=== PATIENT | male | born 1980 | race Caucasian/White ===

== ENCOUNTER 2017-02-23 11:12 | Emergency (ER) | payer MEDICAID ==
[2017-02-23] MEDS ORDERED: Ibuprofen TAB* 400 MG PO ONE (12:49)
--- NOTE | 2017-02-23 12:49 | UC ---
Skin Complaint HPI - HPI Summary HPI Summary: complaint of insect bite on his left arm this morning squeezed bite area and some pus came out of it painful and feels hot red area is increasing today hasn't taken anything for pain - History of Current Complaint Chief Complaint: UCSkin Time Seen by Provider: 02/23/17 12:39 Stated Complaint: BUG BITE Hx Obtained From: Patient - Allergy/Home Medications Allergies/Adverse Reactions: Allergies Allergy/AdvReac Type Severity Reaction Status Date / Time No Known Allergies Allergy Verified 02/23/17 11:15 Review of Systems Constitutional: Negative Skin: Rash Eyes: Negative ENT: Negative Respiratory: Negative Cardiovascular: Negative Gastrointestinal: Negative Genitourinary: Negative Motor: Negative Neurovascular: Negative Musculoskeletal: Negative Neurological: Negative Psychological: Negative All Other Systems Reviewed And Are Negative: Yes PMH/Surg Hx/FS Hx/Imm Hx Previously Healthy: Yes - Surgical History Surgical History: Yes Surgery Procedure, Year, and Place: eye - Family History Known Family History: Negative: Cardiac Disease, Hypertension, Diabetes - Social History Occupation: Employed Full-time Lives: With Family Alcohol Use: Weekly Substance Use Type: Marijuana Smoking Status (MU): Former Smoker Physical Exam Triage Information Reviewed: Yes Appearance: No Pain Distress, Well-Nourished Vital Signs: Initial Vital Signs Temp 97 F 02/23/17 11:16 Pulse 66 02/23/17 11:16 Resp 15 02/23/17 11:16 BP 120/89 02/23/17 11:16 Pulse Ox 100 02/23/17 11:16 Vital Signs Reviewed: Yes Eyes: Positive: Conjunctiva Clear ENT: Positive: Pharynx normal, TMs normal Neck: Positive: No Lymphadenopathy Respiratory: Positive: Lungs clear, Normal breath sounds, No respiratory distress, No accessory muscle use Cardiovascular: Positive: RRR, No Murmur, Pulses Normal Abdomen Description: Positive: Nontender, Soft Bowel Sounds: Positive: Present Musculoskeletal: Positive: No Edema Neurological: Positive: Alert Psychological Exam: Normal Skin: Positive: rashes - 9x 6cm area of erythema surrounding bite site- no induration beneath bite Course/Dx - Differential Diagnoses - Skin Complaint Differential Diagnoses: Cellulitis, Other - insect bite - Diagnoses Provider Diagnoses: cellulitis, insect bite Discharge - Discharge Plan Condition: Stable Disposition: HOME Prescriptions: Cephalexin CAP* [Keflex CAP*] 500 mg PO TID #21 cap Patient Education Materials: Cellulitis (ED) Referrals: No Primary Care Phys,NOPCP [Primary Care Provider] - [facility] [[facility]] Additional Instructions: Please start antibiotic as directed If area of redness increases, you develop a fever or pain increases please return to urgent care Increase fluids and rest Take acetaminophen or ibuprofen for fever or pain Please review your discharge instructions. If your symptoms do not improve please call your primary care provider or return to urgent care.
[2017-02-23] MEDS ORDERED: Tetan/Diph/Pertus SYR(Tdap)* 0.5 ML SYR(BOOSTRIX) use SYR IM ONE (12:50)
== END 2017-02-23 13:20 | disposition home or self-care (01) ==
LOC: UCEAST 11:12
DX: S40.862A Insect bite (nonvenomous) of left upper arm, initial encounter (principal); L03.114 Cellulitis of left upper limb; W57.XXXA Bitten or stung by nonvenomous insect and other nonvenomous arthropods, initial encounter; Y93.9 Activity, unspecified; Y92.9 Unspecified place or not applicable; Y99.9 Unspecified external cause status; Z87.891 Personal history of nicotine dependence
CPT/HCPCS: 90471; 90715; 99202; A9270-GY; G0463

== ENCOUNTER 2019-07-13 13:15 | Emergency (ER) | payer MEDICAID, OTHER ==
[2019-07-13 13:28] VITALS: BP 127/96
[2019-07-13] MEDS ORDERED: Lidocaine 2% VISCOUS* 15 ML UDC PO ONE (13:31)
[2019-07-13] MEDS ORDERED: Al Hydrox/Mg Hydrox/Simet LIQ* 30 ML UDC PO ONE (13:31)
--- NOTE | 2019-07-13 13:57 | UC ---
Abdominal Pain Male HPI - HPI Summary HPI Summary: PATIENT WAS UP FEEDING HIS BABY AT 3AM WHEN HE SUDDENLY DEVELOPED EPIGASTRIC ABDOMINAL PAIN AND BLOATING. HE HAD SOME NAUSEA WHICH HAS SINCE RESOLVED BUT STATES THE DISCOMFORT HAS PERSISTED OVER THE DAY. DENIES ANY CHEST PAIN OR SHORTNESS OF BREATH. NO FEVER. - History of Current Complaint Chief Complaint: UCAbdominalPain Stated Complaint: abdominal pain Time Seen by Provider: 07/13/19 13:29 Hx Obtained From: Patient, Family/Tool Supervisor - AMOS Onset/Duration: Sudden Onset, Lasting Hours, Still Present Severity Initially: Moderate Severity Currently: Moderate Pain Intensity: 8 Pain Scale Used: 0-10 Numeric Location: Epigastric Radiates: Yes Radiates to: Back Character: Burning, Sharp Aggravating Factor(s): Nothing Alleviating Factor(s): Nothing Associated Signs And Symptoms: Positive: Back Pain, Nausea. Negative: Diaphoresis, Fever, Chest Pain, Urinary Symptoms, Vomiting, Diarrhea - Allergies/Home Medications Allergies/Adverse Reactions: Allergies Allergy/AdvReac Type Severity Reaction Status Date / Time No Known Allergies Allergy Verified 07/13/19 13:23 PMH/Surg Hx/FS Hx/Imm Hx Previously Healthy: Yes - Surgical History Surgical History: Yes Surgery Procedure, Year, and Place: eye - Family History Known Family History: Negative: Cardiac Disease, Hypertension, Diabetes - Social History Alcohol Use: Occasionally Substance Use Type: Marijuana Substance Use Comment - Amount & Last Used: ocassionally Smoking Status (MU): Former Smoker Length of Time of Smoking/Using Tobacco: 10 When Did the Patient Quit Smoking/Using Tobacco: 2006 Review of Systems All Other Systems Reviewed And Are Negative: Yes Constitutional: Positive: Negative Respiratory: Positive: Negative Cardiovascular: Positive: Negative Gastrointestinal: Positive: Abdominal Pain, Nausea. Negative: Vomiting, Diarrhea Genitourinary: Positive: Negative Physical Exam Triage Information Reviewed: Yes Appearance: Well-Appearing, Well-Nourished, Pain Distress - MILD Vital Signs: Initial Vital Signs Temp 98 F 07/13/19 13:23 Pulse 89 07/13/19 13:23 Resp 20 07/13/19 13:23 BP 127/96 07/13/19 13:23 Pulse Ox 100 07/13/19 13:23 Vital Signs Reviewed: Yes Eyes: Positive: Conjunctiva Clear ENT: Positive: Hearing grossly normal Neck: Positive: Supple Respiratory Exam: Normal Cardiovascular Exam: Normal Abdomen Description: Positive: Nontender, Soft. Negative: CVA Tenderness (R), CVA Tenderness (L), Distended, Guarding Bowel Sounds: Positive: Present Musculoskeletal: Positive: No Edema Neurological: Positive: Alert Psychological: Positive: Normal Response To Family, Age Appropriate Behavior Skin: Negative: Rashes Diagnostics - EKG Cardiac Rate: NL - 80BPM Cardiac Rhythm: Sinus: Normal Ectopy: None ST Segment: Normal Re-Evaluation - Re-Evaluation First Eval Re-Evaluation Time: 14:15 - FEELS A BIT BETTER AFTER GI COCKTAIL Change: Improved Abd Pain Male Course/Dx - Course Course Of Treatment: PATIENT WITH EPIGASTRIC ABDOMINAL PAIN AND INTERMITTENT NAUSEA. ABDOMINAL EXAM BENIGN. PATIENT HAD SOME IMPROVEMENT AFTER GI COCKTAIL. 60 MG TORADOL IM ADMINISTERED HERE IN THE UC. RECOMMENDED PATIENT AVOID NSAIDS AND ANY POSSIBLE TRIGGER FOODS. TYLENOL NEEDED. FOLLOW-UP WITH GI. TO THE ER WITHOUT FAIL IF SYMPTOMS WORSEN. - Differential Dx/Clinical Impression Provider Diagnosis: Gastritis Discharge ED - Sign-Out/Discharge Documenting (check all that apply): Patient Departure All imaging exams completed and their final reports reviewed: No Studies - Discharge Plan Condition: Stable Disposition: HOME Prescriptions: Omeprazole 20 mg PO DAILY #30 capsule. Ondansetron ODT TAB* [Zofran Odt TAB*] 4 mg PO Q6H PRN #20 tab.odt PRN Reason: Nausea/Vomiting Patient Education Materials: Gastritis (ED) Referrals: [facility] [Provider Group] - As Soon As Possible Chaim Oquendo MD [Primary Care Provider] - If Needed Additional Instructions: YOU FELT SLIGHTLY BETTER AFTER THE GI COCKTAIL. 60MG TORADOL INJECTION ADMINISTERED. SUSPICIOUS FOR GASTRITIS. STAY WELL HYDRATED. TAKE THE REFLUX MEDICINE IN THE MORNING (IDEALLY AT LEAST 30 MINUTES BEFORE YOU EAT). EAT SLOWLY. STAY UPRIGHT AT LEAST 30 MINUTES AFTER EATING. EAT SMALLER, MORE FREQUENT MEALS OPPOSED TO LARGE INFREQUENT MEALS. RECOMMEND BLAND DIET. AVOID GREASY, SPICY, ACIDIC FOODS. NO CAFFEINE OR ALCOHOL. AVOID NSAIDS SUCH IBUPROFEN AND NAPROXEN THESE CAN IRRITATE THE STOMACH. TAKE TYLENOL FOR DISCOMFORT. ZOFRAN FOR NAUSEA. CALL GI TODAY TO SCHEDULE A FOLLOW-UP APPT FOR SOON POSSIBLE. GO TO THE ER WITHOUT FAIL IF YOU DEVELOP WORSENING PAIN, FEVER, NAUSEA/VOMITING OR ANY OTHER CONCERNING SYMPTOMS. - Billing Disposition and Condition Condition: STABLE Disposition: Home
[2019-07-13] MEDS ORDERED: Ketorolac *IM* INJ* 60 MG/2 ML VIAL IM ONE (14:22)
== END 2019-07-13 14:47 | disposition home or self-care (01) ==
LOC: UCEAST 13:15
DX: K29.70 Gastritis, unspecified, without bleeding (principal); Z87.891 Personal history of nicotine dependence
CPT/HCPCS: 93005; 96372; 99212; A9270-GY; G0463; J1885

== ENCOUNTER 2019-07-13 15:58 | Emergency (ER) | payer OTHER ==
[2019-07-13 19:00] LABS: Hematocrit 43 % (42-52); Hemoglobin 14.9 g/dL (14.0-18.0); Mean Corpuscular HGB Conc 35 g/dL (31-36); Mean Corpuscular Hemoglobin 32 pg (27-31); Mean Corpuscular Volume 92 fL (80-94); Mean Platelet Volume 11.1 fL (7.4-10.4); Platelet Count 183 10^3/uL (150-450); Red Blood Count 4.68 10^6 /uL (4.18-5.48); Red Cell Distribution Width 14 % (10-15); White Blood Count 10.7 10^3/uL (3.5-10.8)
[2019-07-13 19:11] LABS: Albumin 4.4 g/dL (3.2-5.2); Albumin/Globulin Ratio 1.4 (1-3); BUN/Creatinine Ratio 13.8 (8-20); C Reactive Protein 3.26 mg/L (<8.01); Calcium 9.6 mg/dL (8.6-10.3); EGFR African American 117.6 (>60); EGFR Non-African American 97.2 (>60); Globulin 3.2 g/dL (2-4); Potassium 3.8 mmol/L (3.5-5.0); Total Bilirubin 0.7 mg/dL (0.2-1.0); Total Protein 7.6 g/dL (6.4-8.9)
[2019-07-13 19:32] LABS: ABS Eosinophils 0.1 10^3/ul (0-0.6); ABS Lymphocytes 2.2 10^3/ul (1.0-4.8); ABS Monocytes 0.6 10^3/ul (0-0.8); ABS Neutrophils 7.4 10^3/ul (1.5-7.7); Lymphocyte % 21.4 %; Nucleated Red Blood Cells % 0.1
--- NOTE | 2019-07-13 20:43 | ED ---
Abdominal Pain/Male - HPI Summary HPI Summary: This pt is a 38 Y/O M presenting to [facility] accompanied by his friend with a CC of abdominal pain that is described as sharp and extends from his umbilical region to his esophagus and is rated as a 5/10 in severity. He states that last night he ate roast beef and chicken last night that both had the potential to be spoiled by the time he ate the foods. He states that the pain has been increasing since the onset this morning. He states that the pain radiates across his chest, to his back, and in both shoulders. He states that when the onset occurred he became nauseas and had one episode of vomiting this morning. He has had a decreased appetite since the onset. He denies any fevers, chills, SOB, headaches, and coughs. He states that he has pressure located on his prostate when he goes to the bathroom. He states that did not try anything for the pain but states that gas release has helped alleviate his pain. He was at prior to his arrival to [facility] and states that he was diagnosed with gastritis. He states that he has had alleviating symptoms when he was given a GI cocktail and states that his pain has decreased since taking the GI cocktail. He denies any substance use yesterday when the symptoms began. He has no pertinent PMHx. - History of Current Complaint Chief Complaint: EDAbdPain Stated Complaint: ABD PAIN PER PT Time Seen by Provider: 07/13/19 20:13 Hx Obtained From: Patient Onset/Duration: Sudden Onset, Lasting Days - 1, Still Present Timing: Constant Severity Initially: Mild Severity Currently: Mild Pain Intensity: 2 Pain Scale Used: 0-10 Numeric Location: Umbilical Radiates: Yes Radiates to: Back, Chest, Other - shoulders, epigastric Character: Sharp Aggravating Factor(s): Nothing Alleviating Factor(s): Other: - GI cocktail Associated Signs And Symptoms: Positive: Chest Pain - radiated pain, Back Pain - radiated pain, Urinary Symptoms, Decreased Appetite, Nausea, Vomiting. Negative: Fever, Cough - Allergies/Home Medications Allergies/Adverse Reactions: Allergies Allergy/AdvReac Type Severity Reaction Status Date / Time No Known Allergies Allergy Verified 07/13/19 13:23 PMH/Surg Hx/FS Hx/Imm Hx Previously Healthy: Yes Endocrine/Hematology History: Denies: Hx Diabetes Cardiovascular History: Denies: Hx Hypertension Respiratory History: Denies: Hx Asthma - Cancer History Hx Chemotherapy: No Hx Radiation Therapy: No - Surgical History Surgical History: Yes Surgery Procedure, Year, and Place: eye - Immunization History Immunizations Up to Date: Yes Infectious Disease History: No Infectious Disease History: Denies: Hx Clostridium Difficile, Hx Hepatitis, Hx Human Immunodeficiency Virus (HIV), Hx of Known/Suspected MRSA, Hx Shingles, Hx Tuberculosis, Hx Known/ Suspected VRE, Hx Known/Suspected VRSA, History Other Infectious Disease, Traveled Outside the [place] in Last 30 Days - Family History Known Family History: Negative: Cardiac Disease, Hypertension, Diabetes - Social History Occupation: Employed Full-time Lives: With Family Alcohol Use: Occasionally Hx Substance Use: Yes Substance Use Type: Reports: Marijuana Substance Use Comment - Amount & Last Used: ocassionally Hx Tobacco Use: Yes Smoking Status (MU): Former Smoker Length of Time of Smoking/Using Tobacco: 10 Review of Systems - ROS Summary Review of Systems Summary: Home Medications Medication Instructions Recorded Confirmed Type Omeprazole 20 mg PO DAILY #30 capsule.dr 07/13/19 Rx Ondansetron ODT TAB* [Zofran 4 MG 4 mg PO Q6H PRN #20 tab.odt 07/13/19 Rx Odt TAB*] Pantoprazole TAB * [Protonix TAB*] 40 mg PO DAILY #30 tab 07/13/19 Rx Negative: Fever, Chills Positive: Chest Pain - radiated pain Negative: Shortness Of Breath, Cough Positive: Abdominal Pain, Vomiting, Nausea Musculoskeletal: Other - radiated back and shoulder pain Negative: Headache All Other Systems Reviewed And Are Negative: Yes Physical Exam - Summary Physical Exam Summary: General: Well-developed, Well-nourished male No acute distress. HEENT: Normocephalic, Atraumatic. Eyes: Conjuctiva normal, PERRL. Ears: TMs within normal limits. Nares: (-) discharge, (-) erythema. Oropharynx: Clear, mucous membranes moist, (-) exudates. Neck: Soft, FROM, (-) lymphadenopathy, (-) thyromegaly, (-) JVD. Cardiovascular: Normal sinus rhythm, (-) murmur. Lungs: Clear to auscultation bilaterally (-) wheezes, (-) rales, (-) rhonchi. Abdomen: Soft, mild epigastric tenderness, non-distended, (-) organomegaly, normal bowel sounds. Back: (-) CVA tenderness Extremities: No edema. Skin: Warm, dry, (-) rash. Neuro: Alert and oriented x3, no focal deficits. Psychiatric: Mood normal, affect normal. Triage Information Reviewed: Yes Vital Signs On Initial Exam: Initial Vitals Temp Pulse Resp BP Pulse Ox 97.8 F 85 18 154/99 97 07/13/19 16:14 07/13/19 16:14 07/13/19 16:14 07/13/19 16:14 07/13/19 16:14 Vital Signs Reviewed: Yes Procedures - Sedation Patient Received Moderate/Deep Sedation with Procedure: No Diagnostics - Vital Signs Vital Signs Temp Pulse Resp BP Pulse Ox 07/13/19 20:23 81 121/81 95 07/13/19 20:21 80 95 07/13/19 19:40 98.0 F 88 16 150/99 98 07/13/19 17:34 99.2 F 72 20 141/103 99 07/13/19 16:14 97.8 F 85 18 154/99 97 - Laboratory Lab Results: Lab Results 07/13/19 07/13/19 07/13/19 Range/Units 18:33 18:33 18:33 WBC 10.7 (3.5-10.8) 10^3/uL RBC 4.68 (4.18-5.48) 10^6 /uL Hgb 14.9 (14.0-18.0) g/dL Hct 43 (42-52) % MCV 92 (80-94) fL MCH 32 H (27-31) pg MCHC 35 (31-36) g/dL RDW 14 (10-15) % Plt Count 183 (150-450) 10^3/uL MPV 11.1 H (7.4-10.4) fL Neut % (Auto) 71.1 % Lymph % (Auto) 21.4 % Hartley % (Auto) 6.1 % Eos % (Auto) 1.0 % Baso % (Auto) 0.4 % Absolute Neuts (auto) 7.4 (1.5-7.7) 10^3/ul Absolute Lymphs (auto) 2.2 (1.0-4.8) 10^3/ul Absolute Monos (auto) 0.6 (0-0.8) 10^3/ul Absolute Eos (auto) 0.1 (0-0.6) 10^3/ul Absolute Basos (auto) 0.0 (0-0.2) 10^3/ul Absolute Nucleated RBC 0.0 10^3/ul Nucleated RBC % 0.1 Sodium 137 (135-145) mmol/L Potassium 3.8 (3.5-5.0) mmol/L Chloride 105 (101-111) mmol/L Carbon Dioxide 24 (22-32) mmol/L Anion Gap 8 (2-11) mmol/L BUN 12 (6-24) mg/dL Creatinine 0.87 (0.67-1.17) mg/dL Est GFR ( Amer) 117.6 (>60) Est GFR (Non-Af Amer) 97.2 (>60) BUN/Creatinine Ratio 13.8 (8-20) Glucose 105 H (70-100) mg/dL Lactic Acid 0.8 (0.5-2.0) mmol/L Calcium 9.6 (8.6-10.3) mg/dL Total Bilirubin 0.70 (0.2-1.0) mg/dL AST 19 (13-39) U/L ALT 23 (7-52) U/L Alkaline Phosphatase 85 (34-104) U/L C-Reactive Protein 3.26 (<8.01) mg/L Total Protein 7.6 (6.4-8.9) g/dL Albumin 4.4 (3.2-5.2) g/dL Globulin 3.2 (2-4) g/dL Albumin/Globulin Ratio 1.4 (1-3) Lipase 11 (11.0-82.0) U/L Result Diagrams: 07/13/19 18:33 07/13/19 18:33 Lab Statement: Any lab studies that have been ordered have been reviewed, and results considered in the medical decision making process. Abdominal Pain Male Course/Dx - Course Course Of Treatment: 38-year-old male with epigastric pain. Patient states he initially went to urgent care and had a GI cocktail. Pain improved. It then started returning. Came to the emergency room. While he was waiting the pain became severe but by the time I see him it has lessened again. Workup essentially negative. Patient started on Prilosec. Follow up with PCP. - Diagnoses Provider Diagnoses: Epigastric pain Discharge ED - Sign-Out/Discharge Documenting (check all that apply): Patient Departure - discharge - Discharge Plan Condition: Good Disposition: HOME Prescriptions: Pantoprazole TAB * [Protonix TAB*] 40 mg PO DAILY #30 tab Patient Education Materials: Epigastric Pain (ED) Referrals: Chaim Oquendo MD [Primary Care Provider] - 2 Days Additional Instructions: PLEASE FOLLOW UP WITH YOUR PRIMARY CARE PROVIDER IN THE NEXT 1-3 DAYS. RETURN TO THE EMERGENCY DEPARTMENT FOR ANY NEW OR WORSENING SYMPTOMS. Take the prescribed medications as directed. - Billing Disposition and Condition Condition: GOOD Disposition: Home - Attestation Statements Document Initiated by Dayana: Yes Documenting Teresaibe: Thang Pavon Provider For Whom Dayana is Documenting (Include Credential): Sylvia Mccray MD Scribe Attestation: Thang Gómez, scribed for Sylvia Mccray MD on 07/14/19 at 1949. Scribe Documentation Reviewed: Yes Provider Attestation: The documentation as recorded by the Thang gerardo accurately reflects the service I personally performed and the decisions made by me, Sylvia Mccray MD Status of Scribe Document: Viewed
[2019-07-13] MEDS ORDERED: Pantoprazole TAB * 40 MG TAB PO ONE (21:03)
[2019-07-13 21:09] LABS: Urine Appearance Clear; Urine Bilirubin Negative (Negative); Urine Blood Negative (Negative); Urine Color Straw; Urine Glucose Negative (Negative); Urine Ketones 1+ (Negative); Urine Nitrite Negative (Negative); Urine Protein Negative (Negative); Urine Specific Gravity 1.008 (1.010-1.030); Urine Urobilinogen Negative (Negative)
[2019-07-13 21:22] VITALS: BP 131/90
== END 2019-07-13 21:15 | disposition home or self-care (01) ==
LOC: ED 15:58
DX: R10.13 Epigastric pain (principal); R11.2 Nausea with vomiting, unspecified; M54.9 Dorsalgia, unspecified; M25.512 Pain in left shoulder; M25.511 Pain in right shoulder; Z87.891 Personal history of nicotine dependence
CPT/HCPCS: 36415; 80053; 81003; 83605; 83690; 85025; 86140; 99282; A9270-GY